=== PATIENT | female | born 1945 | race American Indian/Alaskan Native ===

== ENCOUNTER 2017-05-18 13:20 | Emergency (ER) | payer MEDICARE ==
--- NOTE | 2017-05-18 15:09 | Emergency Department Report ---
HPI - General Chief Complaint: Altered Mental Status Time Seen by Provider: 05/18/17 14:47 - HPI HPI: This is a 72-year-old -[place] female presents to the emergency department by EMS from her personal long term for an evaluation. EMS states that the caregiver was saying that the patient has been increasingly anxious and has been pacing around the house. The patient has a history of dementia, diabetes, hypertension and schizophrenia. Patient denies any current suicidal or homicidal ideations or any current hallucinations. She says that she is unsure why she was sent in to be seen from the long term and denies any discomfort or complaints in general. ED Past Medical Hx - Past Medical History Previous Medical History?: Yes Hx Hypertension: Yes Hx Diabetes: Yes Hx Seizures: Yes (not in several years) Hx Psychiatric Treatment: Yes (schizophenia) Hx Dementia: Yes - Surgical History Past Surgical History?: Yes Additional Surgical History: hysterectomy - Social History Smoking Status: Never Smoker Substance Use Type: None - Medications Home Medications: Home Medications Medication Instructions Recorded Confirmed Last Taken Type Docusate Sodium [Colace] 100 mg PO BID PRN #14 capsule 10/17/13 Unknown Rx HYDROcodone/APAP 5-325 [[place] 1 each PO Q8HR PRN #20 tablet 10/17/13 Unknown Rx 5/325 mg] Polyethylene Glycol 3350 [Miralax] 17 gm PO DAILY #3 day 10/17/13 Unknown Rx ED Review of Systems ROS: Stated complaint: CHANGE IN BEHAVIOR/ANXIETY Other details as noted in HPI Comment: All other systems reviewed and negative Constitutional: denies: chills, fever Eyes: denies: eye pain, eye discharge, vision change ENT: denies: ear pain, throat pain Respiratory: denies: cough, shortness of breath, wheezing Cardiovascular: denies: chest pain, palpitations Gastrointestinal: denies: abdominal pain, nausea, diarrhea Genitourinary: denies: urgency, dysuria, discharge Musculoskeletal: denies: back pain, joint swelling, arthralgia Skin: denies: rash, lesions Neurological: denies: headache, weakness, paresthesias Physical Exam - Physical Exam Vital Signs: Vital Signs 05/18/17 14:29 Temperature 97 F L Pulse Rate 101 H Respiratory 20 Rate Blood Pressure 180/101 O2 Sat by Pulse 97 Oximetry Physical Exam: GENERAL: The patient is well-developed well-nourished. HENT: Normocephalic. Atraumatic. Patient has moist mucous membranes. EYES: Extraocular motions are intact. Pupils equal, round and reactive to light. NECK: Supple. Trachea is midline. CHEST/LUNGS: Clear to auscultation. There is no respiratory distress noted. HEART/CARDIOVASCULAR: Regular. There is no tachycardia. There is no gallop rub or murmur. ABDOMEN: Abdomen is soft, nontender. Patient has normal bowel sounds. There is no abdominal distention. SKIN: Skin is warm and dry. NEURO: The patient is awake, alert. The patient is cooperative. The patient has no focal neurologic deficits. The patient has normal speech and gait. MUSCULOSKELETAL: There is no tenderness or deformity. There is no limitation range of motion. There is no evidence of acute injury. ED Course Vital Signs 05/18/17 14:29 Temperature 97 F L Pulse Rate 101 H Respiratory 20 Rate Blood Pressure 180/101 O2 Sat by Pulse 97 Oximetry ED Medical Decision Making - Lab Data Result diagrams: 05/18/17 15:05 05/18/17 15:05 - EKG Data -: EKG Interpreted by Ok EKG shows normal: sinus rhythm, axis, intervals, QRS complexes, ST-T waves Rate: normal - EKG Data When compared to previous EKG there are: previous EKG unavailable Interpretation: normal EKG - Medical Decision Making 72-year-old female was sent in from her personal long term after they thought that she might be very anxious that she has been pacing around. The patient herself says she is unsure why she was sent in. She is awake and alert and appears to be at her baseline mental status. There are no obvious focal, motor or sensory deficits in her cranial nerves are intact. She denies any suicidal or homicidal ideations or any current hallucinations. Labs are unremarkable. EKG is normal without ST elevation [place], ischemia or dysrhythmia. Vital signs stable throughout ED course. She presented with some elevated blood pressure on the first set of vitals but that resolved without any medication or intervention. The patient does not appear to be in any distress. She does not appear altered. She does not appear to be a candidate to be made a 1013. All these reasons patient will be discharged back to her personal long term. - Differential Diagnosis anxiety, schizophrenia, dementia Critical Care Time: No Critical care attestation.: If time is entered above; I have spent that time in minutes in the direct care of this critically ill patient, excluding procedure time. ED Disposition Clinical Impression: History of dementia, History of schizophrenia Disposition: DC- TO HOME OR SELFCARE Is pt being admited?: No Condition: Good Additional Instructions: Please follow up with a primary care physician and/or your psychiatrist as needed. Return to the emergency Department with any worsening of your symptoms or any acute distress. Referrals: JANA CAMPO MD [Staff Physician] - 3-5 Days [facility] [Outside] - 3-5 Days Time of Disposition: 16:34
[2017-05-18 15:29] LABS: Bacteria,Urine 1+ /HPF (Negative); Bilirubin,Urine NEG (Negative); Blood,Urine MOD (Negative); Ketones,Urine TR mg/dL (Negative); Leukocyte Esterase,Urine NEG (Negative); Mucus,Urine FEW /HPF; Nitrite,Urine NEG (Negative); Protein,Urine <15 mg/dL mg/dL (Negative); Urobilinogen,Urine < 2.0 mg/dL (<2.0); WBC,Urine < 1.0 /HPF (0.0-6.0)
[2017-05-18 15:39] LABS: Basophils % (Auto) 0.4 % (0.0-1.8); Eosinophils % (Auto) 0.4 % (0.0-4.3); Hematocrit 40.2 % (30.3-42.9); Hemoglobin 13.3 gm/dl (10.1-14.3); Mean Corpuscular HGB Conc 33 % (30-34); Mean Corpuscular Hemoglobin 31 pg (28-32); Mean Corpuscular Volume 94 fl (79-97); Platelet Count 231 K/mm3 (140-440); Red Blood Count 4.26 M/mm3 (3.65-5.03); Red Cell Distribution Width 13.7 % (13.2-15.2); White Blood Count 5.9 K/mm3 (4.5-11.0)
[2017-05-18 15:45] LABS: Alanine Aminotransferase 6 units/L (7-56); Albumin 4.1 g/dL (3.9-5); Albumin/Globulin Ratio 1.2 %; Alkaline Phosphatase 62 units/L (35-129); Anion Gap 19 mmol/L; Blood Urea Nitrogen 9 mg/dL (7-17); Calcium 8.8 mg/dL (8.4-10.2); Carbon Dioxide 24 mmol/L (22-30); Chloride 98.6 mmol/L (98-107); Glucose 113 mg/dL (65-100); Potassium 3.8 mmol/L (3.6-5.0); Sodium 138 mmol/L (137-145); Total Protein 7.5 g/dL (6.3-8.2)
[2017-05-18] MEDS ORDERED: GEODON IM ONE (18:18)
[2017-05-18] MEDS ORDERED: WATER FOR INJ (PF) 10 ML ONE (18:19)
[2017-05-18] MEDS ORDERED: GEODON IM PRN (18:59)
[2017-05-18 19:03] VITALS: BP 135/84
== END 2017-05-18 19:02 | disposition home or self-care (01) ==
LOC: ED 13:20
DX: F03.90 Unspecified dementia, unspecified severity, without behavioral disturbance, psychotic disturbance, mood disturbance, and anxiety (principal); F20.9 Schizophrenia, unspecified; I10 Essential (primary) hypertension; E11.9 Type 2 diabetes mellitus without complications
CPT/HCPCS: 36415; 80053; 80164; 81001; 84443; 85025; 93005; 93010; 96372; 99284; J3486

== ENCOUNTER 2017-07-10 12:10 | Inpatient (IN) | payer MEDICAID, MEDICARE ==
[2017-07-10] MEDS ORDERED: HALDOL IM ONE (13:17)
[2017-07-10 13:30] LABS: Basophils % (Auto) 0.7 % (0.0-1.8); Eosinophils % (Auto) 0.4 % (0.0-4.3); Hematocrit 39.9 % (30.3-42.9); Hemoglobin 13.6 gm/dl (10.1-14.3); Mean Corpuscular HGB Conc 34 % (30-34); Mean Corpuscular Hemoglobin 32 pg (28-32); Mean Corpuscular Volume 93 fl (79-97); Platelet Count 209 K/mm3 (140-440); Red Cell Distribution Width 13.9 % (13.2-15.2); White Blood Count 6.3 K/mm3 (4.5-11.0)
[2017-07-10 13:52] LABS: Alanine Aminotransferase 7 units/L (7-56); Albumin 4.1 g/dL (3.9-5); Albumin/Globulin Ratio 1.1 %; Alkaline Phosphatase 61 units/L (35-129); Anion Gap 20 mmol/L; BUN/Creatinine Ratio 13; Blood Urea Nitrogen 8 mg/dL (7-17); Calcium 9.3 mg/dL (8.4-10.2); Carbon Dioxide 25 mmol/L (22-30); Chloride 99.1 mmol/L (98-107); Glucose 106 mg/dL (65-100); Potassium 3.8 mmol/L (3.6-5.0); Sodium 140 mmol/L (137-145); Total Protein 7.7 g/dL (6.3-8.2)
[2017-07-10 13:53] LABS: Urine Drugs of Abuse Note Disclamer
--- NOTE | 2017-07-10 13:54 | Emergency Department Report ---
HPI - General Chief Complaint: Altered Mental Status Time Seen by Provider: 07/10/17 13:11 - HPI HPI: Room 23 The patient is a 72-year-old female presented with a chief complaint of altered mental status. Patient was sent from an adult daycare center for "altered mental status." At the adult daycare center states the patient's behavior is different as she was frequently getting up and seemed agitated/anxious. Staff reported that this is unusual behavior for her. The patient has a history of dementia and does not answer questions appropriately when asked making history limited. 14:10 Discussed case with van owner operator of personal snf (Jeimy Glaesr ) who states patient received a routine PPD 6 days ago as the patient had not had one documented in her chart. The van owner operator states that the patient did have a reaction and was sent for outpatient chest x-ray by her primary physician. The iron and steel work supervisor states the primary physician read the chest x-ray is negative. The iron and steel work supervisor states the PPD was placed just for routine documentation the patient did not exhibit any symptoms (i.e. night sweats, cough , fever, weight loss). Location: Mental status Duration: [see above] Quality: Agitation Severity: Moderate Modifying factors: Unknown Context: [see above] Mode of transportation: [not driving] ED Past Medical Hx - Past Medical History Previous Medical History?: Yes Hx Hypertension: Yes Hx Diabetes: Yes Hx Seizures: Yes (not in several years) Hx Psychiatric Treatment: Yes (schizophenia) Hx Dementia: Yes - Surgical History Past Surgical History?: No Additional Surgical History: hysterectomy - Family History Family history: no significant - Social History Smoking Status: Unknown if ever smoked - Medications Home Medications: Home Medications Medication Instructions Recorded Confirmed Last Taken Type Unobtainable 07/10/17 07/10/17 Unknown History ED Review of Systems ROS: Stated complaint: AMS Other details as noted in HPI Comment: Unobtainable due to pts medical conditions Physical Exam - Physical Exam Vital Signs: Vital Signs 07/10/17 07/10/17 12:37 12:58 Temperature 98.0 F 98.0 F Pulse Rate 104 H 98 H Respiratory 16 18 Rate Blood Pressure 165/99 [Right] O2 Sat by Pulse 96 Oximetry Physical Exam: GENERAL: The patient is well-developed well-nourished female lying on stretcher appearing somewhat agitated. Patient does not always answer questions HEENT: Normocephalic. Atraumatic. Extraocular motions are intact. Patient has moist mucous membranes. NECK: Supple. Trachea midline CHEST/LUNGS: Clear to auscultation. There is no respiratory distress noted. HEART/CARDIOVASCULAR: Regular. There is no tachycardia. There is no gallop rub or murmur. ABDOMEN: Abdomen is soft, nontender. Patient has normal bowel sounds. There is no abdominal distention. SKIN: There is no rash. There is no edema. There is no diaphoresis. NEURO: The patient is awake and alert but is not cooperative. Patient appears to move all extremities well and does not cooperate with neurologic exam. The patient has normal speech MUSCULOSKELETAL: There is no evidence of acute injury. ED Course Vital Signs 07/10/17 07/10/17 12:37 12:58 Temperature 98.0 F 98.0 F Pulse Rate 104 H 98 H Respiratory 16 18 Rate Blood Pressure 165/99 [Right] O2 Sat by Pulse 96 Oximetry ED Medical Decision Making - Lab Data Result diagrams: 07/10/17 13:03 07/10/17 13:03 Laboratory Tests 07/10/17 07/10/17 07/10/17 12:59 13:03 13:03 WBC 6.3 RBC 4.30 Hgb 13.6 Hct 39.9 MCV 93 MCH 32 MCHC 34 RDW 13.9 Plt Count 209 Lymph % (Auto) 23.7 Real % (Auto) 8.3 H Eos % (Auto) 0.4 Baso % (Auto) 0.7 Lymph # 1.5 Real # 0.5 Eos # 0.0 Baso # 0.0 Seg Neutrophils % 66.9 Seg Neutrophils # 4.2 Sodium 140 Potassium 3.8 Chloride 99.1 Carbon Dioxide 25 Anion Gap 20 BUN 8 Creatinine 0.6 L Estimated GFR > 60 BUN/Creatinine Ratio 13 Glucose 106 H POC Glucose 102 Lactic Acid Calcium 9.3 Magnesium 1.90 Total Bilirubin 0.40 AST 11 ALT 7 Alkaline Phosphatase 61 Total Protein 7.7 Albumin 4.1 Albumin/Globulin Ratio 1.1 TSH Urine Color Urine Turbidity Urine pH Ur Specific [place] Urine Protein Urine Glucose (UA) Urine Ketones Urine Blood Urine Nitrite Ur Reducing Substances Urine Bilirubin Urine Ictotest Urine Urobilinogen Ur Leukocyte Esterase Urine WBC (Auto) Urine RBC (Auto) U Epithel Cells (Auto) Salicylates Urine Opiates Screen Urine Methadone Screen Acetaminophen Ur Barbiturates Screen Ur Phencyclidine Scrn Ur Amphetamines Screen U Benzodiazepines Scrn Urine Cocaine Screen U Marijuana (THC) Screen Drugs of Abuse Note Plasma/Serum Alcohol 07/10/17 07/10/17 07/10/17 13:03 13:03 13:03 WBC RBC Hgb Hct MCV MCH MCHC RDW Plt Count Lymph % (Auto) Real % (Auto) Eos % (Auto) Baso % (Auto) Lymph # Real # Eos # Baso # Seg Neutrophils % Seg Neutrophils # Sodium Potassium Chloride Carbon Dioxide Anion Gap BUN Creatinine Estimated GFR BUN/Creatinine Ratio Glucose POC Glucose Lactic Acid 2.50 H* Calcium Magnesium Total Bilirubin AST ALT Alkaline Phosphatase Total Protein Albumin Albumin/Globulin Ratio TSH 1.020 Urine Color Urine Turbidity Urine pH Ur Specific [place] Urine Protein Urine Glucose (UA) Urine Ketones Urine Blood Urine Nitrite Ur Reducing Substances Urine Bilirubin Urine Ictotest Urine Urobilinogen Ur Leukocyte Esterase Urine WBC (Auto) Urine RBC (Auto) U Epithel Cells (Auto) Salicylates < 0.3 L Urine Opiates Screen Urine Methadone Screen Acetaminophen Ur Barbiturates Screen Ur Phencyclidine Scrn Ur Amphetamines Screen U Benzodiazepines Scrn Urine Cocaine Screen U Marijuana (THC) Screen Drugs of Abuse Note Plasma/Serum Alcohol 07/10/17 07/10/17 07/10/17 13:03 13:03 13:43 WBC RBC Hgb Hct MCV MCH MCHC RDW Plt Count Lymph % (Auto) Real % (Auto) Eos % (Auto) Baso % (Auto) Lymph # Real # Eos # Baso # Seg Neutrophils % Seg Neutrophils # Sodium Potassium Chloride Carbon Dioxide Anion Gap BUN Creatinine Estimated GFR BUN/Creatinine Ratio Glucose POC Glucose Lactic Acid Calcium Magnesium Total Bilirubin AST ALT Alkaline Phosphatase Total Protein Albumin Albumin/Globulin Ratio TSH Urine Color Straw Urine Turbidity Clear Urine pH 7.0 Ur Specific [place] 1.006 Urine Protein <15 mg/dl Urine Glucose (UA) Neg Urine Ketones Neg Urine Blood Neg Urine Nitrite Neg Ur Reducing Substances Not Reportable Urine Bilirubin Neg Urine Ictotest Not Reportable Urine Urobilinogen < 2.0 Ur Leukocyte Esterase Neg Urine WBC (Auto) < 1.0 Urine RBC (Auto) < 1.0 U Epithel Cells (Auto) 1.0 Salicylates Urine Opiates Screen Urine Methadone Screen Acetaminophen < 15.0 Ur Barbiturates Screen Ur Phencyclidine Scrn Ur Amphetamines Screen U Benzodiazepines Scrn Urine Cocaine Screen U Marijuana (THC) Screen Drugs of Abuse Note Plasma/Serum Alcohol < 0.01 07/10/17 13:43 WBC RBC Hgb Hct MCV MCH MCHC RDW Plt Count Lymph % (Auto) Real % (Auto) Eos % (Auto) Baso % (Auto) Lymph # Real # Eos # Baso # Seg Neutrophils % Seg Neutrophils # Sodium Potassium Chloride Carbon Dioxide Anion Gap BUN Creatinine Estimated GFR BUN/Creatinine Ratio Glucose POC Glucose Lactic Acid Calcium Magnesium Total Bilirubin AST ALT Alkaline Phosphatase Total Protein Albumin Albumin/Globulin Ratio TSH Urine Color Urine Turbidity Urine pH Ur Specific [place] Urine Protein Urine Glucose (UA) Urine Ketones Urine Blood Urine Nitrite Ur Reducing Substances Urine Bilirubin Urine Ictotest Urine Urobilinogen Ur Leukocyte Esterase Urine WBC (Auto) Urine RBC (Auto) U Epithel Cells (Auto) Salicylates Urine Opiates Screen Presumptive negative Urine Methadone Screen Presumptive negative Acetaminophen Ur Barbiturates Screen Presumptive negative Ur Phencyclidine Scrn Presumptive negative Ur Amphetamines Screen Presumptive negative U Benzodiazepines Scrn Presumptive negative Urine Cocaine Screen Presumptive negative U Marijuana (THC) Screen Presumptive negative Drugs of Abuse Note Disclamer Plasma/Serum Alcohol - Radiology Data Radiology results: report reviewed (CT head), image reviewed (CT head) CT head (rubber radiologist)-no gross acute intracranial CT abnormalities on this extremely limited exam. - Differential Diagnosis dementia, UTI, ICH, allergic reaction Critical care attestation.: If time is entered above; I have spent that time in minutes in the direct care of this critically ill patient, excluding procedure time. ED Disposition Clinical Impression: Altered mental status Disposition: -09 OP ADMIT IP TO THIS HOSP Is pt being admited?: Yes Condition: Fair Referrals: PRIMARY CARE, [Primary Care Provider] - 3-5 Days Time of Disposition: 14:49 (Hospitalist notified)
--- NOTE | 2017-07-10 14:22 | Cat Scan Report ---
CT HEAD WITHOUT CONTRAST INDICATION: Altered mental status. COMPARISON: 10/17/2013. FINDINGS: Noncontrast head CT extremely limited due to motion artifact, though suggests grossly normal ventricles and sulci. Minimal, benign bilateral basal ganglia calcifications. No significant hemorrhage, mass effect or midline shift. Grossly normal posterior fossa. Normal eye globes. Clear imaged paranasal sinuses. Partial mastoid air cell opacification not entirely excluded, more so on the left. Grossly intact calvarium and scalp. Few radiopaque dental material. CONCLUSION: No gross acute intracranial CT abnormality on this extremely limited exam, as described. Please correlate. Thank you for the opportunity to participate in this patient's care.
[2017-07-10 14:23] LABS: RBC,Urine < 1.0 /HPF (0.0-6.0)
[2017-07-10 14:35] LABS: Bilirubin,Urine NEG (Negative); Blood,Urine NEG (Negative); Ketones,Urine NEG (Negative); Leukocyte Esterase,Urine NEG (Negative); Nitrite,Urine NEG (Negative); Protein,Urine <15 mg/dL mg/dL (Negative); Urobilinogen,Urine < 2.0 mg/dL (<2.0)
[2017-07-10 14:38] LABS: WBC,Urine < 1.0 /HPF (0.0-6.0)
[2017-07-10] MEDS ORDERED: ATIVAN IM ONE (14:42)
--- NOTE | 2017-07-10 14:52 | History and Physical Report ---
History of Present Illness Chief complaint: confused History of present illness: 72 YO Female with HTN, DM, Seizures, Schizophrenia, Dementia presents to ED for evaluation. Pt confused and unable to provide detailed history. Pt history taken from ED staff, and [facility] staff. As per staff, pt confused and agitated today and patients behavior is different than her baseline. No reports of fever , chills, CP, Palpitations, NVD, Syncope, BRBPR, Unintentional weight loss, seizures. Upon physical exam, patient found to have suprapubic tenderness. Pt found to have lactic acidosis on lab exam. Past History Past Medical History: diabetes, hypertension, seizures, other (schizophrenia, dementia) Past Surgical History: hysterectomy Social history: single. denies: smoking, alcohol abuse, prescription drug abuse Family history: hypertension Medications and Allergies Allergies Allergy/AdvReac Type Severity Reaction Status Date / Time phenobarbital AdvReac Nausea Verified 10/17/13 10:26 Home Medications Medication Instructions Recorded Confirmed Last Taken Type Unobtainable 07/10/17 07/10/17 Unknown History Review of Systems ROS unobtainable: due to mental status Exam - Constitutional Vitals: Temp Pulse Resp BP Pulse Ox 98.0 F 98 H 18 165/99 96 07/10/17 12:58 07/10/17 12:58 07/10/17 12:58 07/10/17 12:58 07/10/17 12:58 General appearance: Present: mild distress - EENT Eyes: Present: PERRL ENT: hearing intact, clear oral mucosa - Neck Neck: Present: supple, normal ROM - Extremities Extremities: pulses symmetrical, No edema Peripheral Pulses: within normal limits - Abdominal General gastrointestinal: Present: soft, non-tender, non-distended, normal bowel sounds Localized gastrointestinal: tender: suprapubic Female genitourinary: Present: normal - Rectal Rectal Exam: normal exam-external/orifice - Integumentary Integumentary: Present: clear, dry - Musculoskeletal Musculoskeletal: strength equal bilaterally - Psychiatric Psychiatric: no intact judgment & insight, no memory intact, agitated - Neurologic Neurologic: CNII-XII intact, gait normal Results - Labs CBC & Chem 7: 07/10/17 13:03 07/10/17 13:03 Labs: Abnormal lab results 07/10/17 07/10/17 07/10/17 Range/Units 13:03 13:03 13:03 [place] % (Auto) 8.3 H (0.0-7.3) % Creatinine 0.6 L (0.7-1.2) mg/dL Glucose 106 H (65-100) mg/dL Lactic Acid 2.50 H* (0.7-2.0) mmol/L Salicylates (2.8-20.0) mg/dL 07/10/17 Range/Units 13:03 [place] % (Auto) (0.0-7.3) % Creatinine (0.7-1.2) mg/dL Glucose (65-100) mg/dL Lactic Acid (0.7-2.0) mmol/L Salicylates < 0.3 L (2.8-20.0) mg/dL Assessment and Plan - Patient Problems (1) SIRS due to infectious process with organ dysfunction Current Visit: Yes Status: Acute Plan to address problem: IV abx, supportive care, IVF resuscitation, serial lactic acid, supportive care. (2) Encephalopathy acute Current Visit: Yes Status: Acute Plan to address problem: Treat UTI, CT head, neuro checks, supportive care, fall precautions. (3) UTI (urinary tract infection) Current Visit: Yes Status: Acute Qualifiers: Urinary tract infection type: U Hematuria presence: H Indwelling urinary catheter type: I Encounter type: E Plan to address problem: IV abx, ivf, supportive care, (4) Lactic acidosis Current Visit: Yes Status: Acute Plan to address problem: IVF resuscitation, serial physical exam, supportive care, monitor uop q shift. (5) DVT prophylaxis Current Visit: Yes Status: Acute
[2017-07-10] MEDS ORDERED: DULCOLAX PR PRN (14:59)
[2017-07-10] MEDS ORDERED: ZOFRAN IV PRN (14:59)
[2017-07-10] MEDS ORDERED: TYLENOL PO PRN (14:59)
[2017-07-10] MEDS ORDERED: MILK OF MAGNESIA PO PRN (14:59)
[2017-07-10] MEDS: NACL 0.45% 1000 ML 1,000 ML IV SCH (23:09)
[2017-07-11] MEDS ORDERED: ROCEPHIN/NS 1 GM/50 ML 1 GM/50 ML BAG IV SCH (10:00)
--- NOTE | 2017-07-11 10:56 | Progress Note ---
Assessment and Plan Assessment and plan: 72-year-old woman with a past medical history of hypertension, diabetes, remote history of seizure, schizophrenia and dementia presents with altered mental status, she was sent from adult daycare. She was frequently getting up and seeming agitated and anxious, this behavior is different from her baseline. She resides in a personal [facility] and contact there is Jeimy Glaser Metabolic encephalopathy infection workup negative so far, will obtain chest x-ray, UA negative UDS negative Medical chart has been reviewed, patient does not meet SIRS or sepsis criteria Diabetes Sliding scale insulin Hypertension Will obtain home medication list and restart them, in the meantime, Hydralazine prn to be given Dementia with delirium -Continue supportive care, will give medications as needed for agitation - History Interval history: He has no complaints, as per the patient he thinks he was brought to the hospital because he was acting up and not quite himself at daycare Hospitalist Physical - Physical exam Narrative exam: General.: Appears well, no distress, nontoxic HEENT: Moist mucous membranes, extraocular muscles intact, no lymphadenopathy Neck: supple Cardiac: S1-S2 heard Lungs: clear to auscultation bilaterally Abdomen: soft , nontender, nondistended, bowel sounds positive Extremities: no edema clubbing or cyanosis Skin: no rash or lesions Neurologic: no gross focal deficits, oriented to person and place only, appears to have mild dementia Psych: Pleasant and cooperative - Constitutional Vitals: Temp Pulse Resp BP Pulse Ox 98.1 F 86 18 149/79 96 07/11/17 08:00 07/11/17 08:00 07/11/17 08:00 07/11/17 08:00 07/11/17 08:00 Results - Labs CBC & Chem 7: 07/10/17 13:03 07/10/17 13:03 Labs: Laboratory Last Values WBC 6.3 K/mm3 (4.5-11.0) 07/10/17 13:03 RBC 4.30 M/mm3 (3.65-5.03) 07/10/17 13:03 Hgb 13.6 gm/dl (10.1-14.3) 07/10/17 13:03 Hct 39.9 % (30.3-42.9) 07/10/17 13:03 MCV 93 fl (79-97) 07/10/17 13:03 MCH 32 pg (28-32) 07/10/17 13:03 MCHC 34 % (30-34) 07/10/17 13:03 RDW 13.9 % (13.2-15.2) 07/10/17 13:03 Plt Count 209 K/mm3 (140-440) 07/10/17 13:03 Lymph % (Auto) 23.7 % (13.4-35.0) 07/10/17 13:03 [place] % (Auto) 8.3 % (0.0-7.3) H 07/10/17 13:03 Eos % (Auto) 0.4 % (0.0-4.3) 07/10/17 13:03 Baso % (Auto) 0.7 % (0.0-1.8) 07/10/17 13:03 Lymph # 1.5 K/mm3 (1.2-5.4) 07/10/17 13:03 [place] # 0.5 K/mm3 (0.0-0.8) 07/10/17 13:03 Eos # 0.0 K/mm3 (0.0-0.4) 07/10/17 13:03 Baso # 0.0 K/mm3 (0.0-0.1) 07/10/17 13:03 Seg Neutrophils % 66.9 % (40.0-70.0) 07/10/17 13:03 Seg Neutrophils # 4.2 K/mm3 (1.8-7.7) 07/10/17 13:03 Sodium 140 mmol/L (137-145) 07/10/17 13:03 Potassium 3.8 mmol/L (3.6-5.0) 07/10/17 13:03 Chloride 99.1 mmol/L (98-107) 07/10/17 13:03 Carbon Dioxide 25 mmol/L (22-30) 07/10/17 13:03 Anion Gap 20 mmol/L 07/10/17 13:03 BUN 8 mg/dL (7-17) 07/10/17 13:03 Creatinine 0.6 mg/dL (0.7-1.2) L 07/10/17 13:03 Estimated GFR > 60 ml/min 07/10/17 13:03 BUN/Creatinine Ratio 13 % 07/10/17 13:03 Glucose 106 mg/dL (65-100) H 07/10/17 13:03 POC Glucose 137 (70-105) H 07/11/17 08:04 Lactic Acid 1.90 mmol/L (0.7-2.0) 07/11/17 05:59 Calcium 9.3 mg/dL (8.4-10.2) 07/10/17 13:03 Magnesium 1.90 mg/dL (1.7-2.3) 07/10/17 13:03 Total Bilirubin 0.40 mg/dL (0.1-1.2) 07/10/17 13:03 AST 11 units/L (5-40) 07/10/17 13:03 ALT 7 units/L (7-56) 07/10/17 13:03 Alkaline Phosphatase 61 units/L (35-129) 07/10/17 13:03 Total Protein 7.7 g/dL (6.3-8.2) 07/10/17 13:03 Albumin 4.1 g/dL (3.9-5) 07/10/17 13:03 Albumin/Globulin Ratio 1.1 % 07/10/17 13:03 TSH 1.020 mlU/mL (0.270-4.200) 07/10/17 13:03 Urine Color Straw (Yellow) 07/10/17 13:43 Urine Turbidity Clear (Clear) 07/10/17 13:43 Urine pH 7.0 (5.0-7.0) 07/10/17 13:43 Ur Specific [place] 1.006 (1.003-1.030) 07/10/17 13:43 Urine Protein <15 mg/dl mg/dL (Negative) 07/10/17 13:43 Urine Glucose (UA) Neg mg/dL (Negative) 07/10/17 13:43 Urine Ketones Neg mg/dL (Negative) 07/10/17 13:43 Urine Blood Neg (Negative) 07/10/17 13:43 Urine Nitrite Neg (Negative) 07/10/17 13:43 Ur Reducing Substances Not Reportable 07/10/17 13:43 Urine Bilirubin Neg (Negative) 07/10/17 13:43 Urine Ictotest Not Reportable 07/10/17 13:43 Urine Urobilinogen < 2.0 mg/dL (<2.0) 07/10/17 13:43 Ur Leukocyte Esterase Neg (Negative) 07/10/17 13:43 Urine WBC (Auto) < 1.0 /HPF (0.0-6.0) 07/10/17 13:43 Urine RBC (Auto) < 1.0 /HPF (0.0-6.0) 07/10/17 13:43 U Epithel Cells (Auto) 1.0 /HPF (0-13.0) 07/10/17 13:43 Salicylates < 0.3 mg/dL (2.8-20.0) L 07/10/17 13:03 Urine Opiates Screen Presumptive negative 07/10/17 13:43 Urine Methadone Screen Presumptive negative 07/10/17 13:43 Acetaminophen < 15.0 ug/mL (10.0-30.0) 07/10/17 13:03 Ur Barbiturates Screen Presumptive negative 07/10/17 13:43 Ur Phencyclidine Scrn Presumptive negative 07/10/17 13:43 Ur Amphetamines Screen Presumptive negative 07/10/17 13:43 U Benzodiazepines Scrn Presumptive negative 07/10/17 13:43 Urine Cocaine Screen Presumptive negative 07/10/17 13:43 U Marijuana (THC) Screen Presumptive negative 07/10/17 13:43 Drugs of Abuse Note Disclamer 07/10/17 13:43 Plasma/Serum Alcohol < 0.01 gm% (0-0.07) 07/10/17 13:03
[2017-07-11] MEDS ORDERED: ATIVAN PO PRN (10:57)
[2017-07-11] MEDS ORDERED: D50W (25GM) Syringe IV PRN (10:57)
[2017-07-11] MEDS ORDERED: APRESOLINE IV PRN (10:57)
[2017-07-11] MEDS: NOVOLOG SUB-Q SCH ×3 (11:30→22:49)
--- NOTE | 2017-07-11 12:04 | XRay Report ---
ROUTINE CHEST, TWO VIEWS: HISTORY: Confusion. The trachea, heart, mediastinal contour, lung patel and bony thorax are unremarkable. IMPRESSION: No acute cardiopulmonary process.
[2017-07-11] MEDS ORDERED: LOVENOX SUB-Q SCH (22:00)
[2017-07-12] MEDS: NOVOLOG SUB-Q SCH ×2 (07:30→11:30)
[2017-07-12] MEDS: NACL 0.45% 1000 ML 1,000 ML IV SCH (08:35)
[2017-07-12 09:05] VITALS: BP 156/87
--- NOTE | 2017-07-12 10:49 | Discharge Summary ---
Providers - Providers Date of Admission: 07/10/17 14:59 Attending physician: MELANI MOSLEY MD Primary care physician: SUPPLIER ENGINEER Hospitalization Condition: Good Hospital course: 72-year-old woman with a past medical history of hypertension, diabetes, remote history of seizure, schizophrenia and dementia presents with altered mental status, she was sent from adult daycare. She was frequently getting up and seeming agitated and anxious, the behavior is apparently different from her baseline. Therefore she was sent to the hospital. She had an infection workup which was negative, received sliding scale insulin, after speaking to the head of her personal residential. It was found out that the patient's personal residential was on a new management and she had not received any of her behavioral meds. Therefore she was given prescriptions for her behavioral meds prior to discharge Discharge diagnoses Metabolic encephalopathy Delirium Dementia Diabetes Hypertension Disposition: [id number]/TX-[id number] ANOTHER TYPE THCARE Time spent for discharge: 33 minutes Core Measure Documentation - Palliative Care Palliative Care/ Comfort Measures: Not Applicable - Core Measures Any of the following diagnoses?: none Exam - Physical Exam Narrative exam: General.: Appears well, no distress, nontoxic HEENT: Moist mucous membranes, extraocular muscles intact, no lymphadenopathy Neck: supple Cardiac: S1-S2 heard Lungs: clear to auscultation bilaterally Abdomen: soft , nontender, nondistended, bowel sounds positive Extremities: no edema clubbing or cyanosis Skin: no rash or lesions Neurologic: no gross focal deficits, oriented to person and place only, appears to have dementia Psych: Pleasant and cooperative - Constitutional Vitals: Temp Pulse Resp BP Pulse Ox 98.2 F 81 20 156/87 97 07/12/17 08:03 07/12/17 08:03 07/12/17 08:03 07/12/17 08:03 07/12/17 08:03 Plan Follow up with: PRIMARY CARE, [Primary Care Provider] - 3-5 Days Prescriptions: clonazePAM [Klonopin] 0.25 mg PO QHS #14 tablet Divalproex ER 50 mg PO QHS #30 Simvastatin [Zocor TAB] 40 mg PO QHS #30 tablet Acetaminophen [Tylenol Extra Strength] 500 mg PO Q6HR PRN #30 tablet PRN Reason: Pain Clopidogrel [Plavix] 75 mg PO QDAY #30 tablet metFORMIN [Glucophage] 500 mg PO QDAY #30 tablet Ranitidine HCl [Zantac 150 MG TAB] 150 mg PO BID #60 tablet risperiDONE [Risperdal] 0.5 mg PO BID #60 tablet
== END 2017-07-12 15:55 | disposition home or self-care (01) | DRG 71 ==
LOC: ED 12:10 → CC2 14:59
PROVIDERS: ADMIT Internal Medicine; ATTEND Internal Medicine
DX: G93.41 Metabolic encephalopathy (principal); E87.2 Acidosis; F03.90 Unspecified dementia, unspecified severity, without behavioral disturbance, psychotic disturbance, mood disturbance, and anxiety; E11.9 Type 2 diabetes mellitus without complications; I10 Essential (primary) hypertension; F20.9 Schizophrenia, unspecified; Z90.710 Acquired absence of both cervix and uterus; Z82.49 Family history of ischemic heart disease and other diseases of the circulatory system; Z88.8 Allergy status to other drugs, medicaments and biological substances
CPT/HCPCS: 36415; 70450; 71020; 80053; 80307; 80320; 81001; 82140; 82962; 83735; 84443; 85025; 93005; 93010; G0480; J0696; J1630; J1650; J2060; J2405

== ENCOUNTER 2021-05-20 09:26 | Emergency (ER) | payer MEDICARE ==
[2021-05-20 09:34] VITALS: BP 146/74
[2021-05-20 10:28] LABS: Basophils % (Auto) 0.3 % (0.0-1.8); Eosinophils # (Auto) 0.1 K/mm3 (0.0-0.4); Eosinophils % (Auto) 1.4 % (0.0-4.3); Hematocrit 42.4 % (30.3-42.9); Hemoglobin 14.2 gm/dl (10.1-14.3); Lymphocytes # (Auto) 1.7 K/mm3 (1.2-5.4); Mean Corpuscular HGB Conc 34 % (30-34); Mean Corpuscular Volume 93 fl (79-97); Monocytes # (Auto) 0.3 K/mm3 (0.0-0.8); Monocytes % (Auto) 6.2 % (0.0-7.3); Platelet Count 268 K/mm3 (140-440); Red Blood Count 4.54 M/mm3 (3.65-5.03); Red Cell Distribution Width 14.8 % (13.2-15.2)
[2021-05-20 10:52] LABS: Alanine Aminotransferase 10 units/L (7-56); Albumin 4.1 g/dL (3.9-5); Blood Urea Nitrogen 10 mg/dL (7-17); Calcium 9.9 mg/dL (8.4-10.2); Hemolysis Index 2
[2021-05-20 10:56] LABS: BUN/Creatinine Ratio 17
[2021-05-20 11:10] LABS: Bilirubin,Urine NEG (Negative); Blood,Urine NEG (Negative); Color,Urine Yellow (Yellow); Mucus,Urine FEW /HPF; Protein,Urine <15 mg/dL mg/dL (Negative)
== END 2021-05-20 13:00 | disposition left against medical advice (07) ==
LOC: ED 09:26
DX: R68.89 Other general symptoms and signs (principal); Z53.21 Procedure and treatment not carried out due to patient leaving prior to being seen by health care provider
CPT/HCPCS: 36415; 80053; 81001; 85025